=== PATIENT | female | born 1990 | race Hispanic/Latino ===

== ENCOUNTER 2022-10-09 18:42 | Emergency (ER) | payer SELFPAY ==
[2022-10-09 20:43] LABS: Bilirubin Neg (Negative); Blood, Urine Negative (Negative); Clarity Clear (Clear); Glucose, Urine (Dipstick) Normal (Negative); Ketone, Urine 50 mg/dL (Negative); Leukocyte 25 (Negative); Nitrite Negative (Negative); Protein, Urine (Dipstick) Negative (Neg-Trace); Urobilinogen Normal mg/dL (Less than 2)
[2022-10-09 20:59] LABS: Bacteria/HPF Rare-Few HPF (None Seen); CAUTI Indications for Culture Pregnancy; RBC/HPF None Seen HPF (0-3); Squamous Epithelial 0-3 HPF (0-3); Urine Culture Reflex Yes Yes; WBC/HPF 0-3 HPF (0-3)
[2022-10-09] MEDS ORDERED: Acetaminophen 500 MG TAB ONE (21:00)
[2022-10-09] MEDS ORDERED: Metoclopramide HCl 10 MG/2 ML VIAL ONE (21:00)
[2022-10-09] MEDS ORDERED: diphenhydrAMINE 50 MG/ML VIAL ONE (21:00)
== END 2022-10-09 22:55 | disposition home or self-care (01) ==
LOC: CSHERS 18:42
DX: R51.9 Headache, unspecified (principal); R11.2 Nausea with vomiting, unspecified
CPT/HCPCS: 81001; 87086; 96361; 96374; 96375; J1200; J2765

== ENCOUNTER 2023-03-23 05:20 | Inpatient (IN) | payer MEDICAID, OTHER, SELFPAY ==
[2023-03-22 13:16] LABS: Hematocrit 35.8 % (34.9-44.5); Hemoglobin 12.7 g/dL (12.0-15.5); Platelet Count 187 10x3/uL (150-450)
[2023-03-22 13:50] LABS: Syphilis Antibody Nonreactive (Nonreactive); Syphilis Antibody Index 0.06 S/CO (<1.00 Non-Reactive)
[2023-03-22 13:52] LABS: Hep B Surf Ag Non-Reactive S/CO (NonReactive)
[2023-03-23 05:40] VITALS: BMI 25.9
[2023-03-23] MEDS ORDERED: CEFAZOLIN 2 GM VIAL ONE (07:04)
[2023-03-23] MEDS ORDERED: Misoprostol 200 MCG TAB ONE (07:05)
[2023-03-23] MEDS ORDERED: Oxytocin 30 units/NS 500 ML 500 ML ONE (07:05)
[2023-03-23] MEDS ORDERED: Tranexamic Acid 1,000 MG/10 ML VIAL ONE (07:05)
[2023-03-23] MEDS ORDERED: Methylergonovine 0.2 MG/ML VIAL ONE (07:05)
[2023-03-23] MEDS ORDERED: Carboprost 250 MCG/ML AMP ONE (07:05)
[2023-03-23] MEDS ORDERED: Morphine PF 10 MG/10 ML VIAL ONE (07:12)
[2023-03-23] MEDS ORDERED: Dexmedetomidine 200 MCG/2 ML VIAL ONE (07:12)
[2023-03-23] MEDS ORDERED: Oxytocin 10 UNITS/ML VIAL ONE (07:13)
[2023-03-23] MEDS ORDERED: Methylergonovine 0.2 MG/ML VIAL IM PRN (07:16)
[2023-03-23] MEDS ORDERED: CEFAZOLIN 2 GM in Sodium Chloride 0.9% 100 ML IVPB SCH (07:16)
[2023-03-23] MEDS ORDERED: Ondansetron PF 4 MG/2 ML Vial IVP PRN ×4 (07:16→10:34)
[2023-03-23] MEDS ORDERED: Lactated Ringer's 1,000 ML IV SCH (07:16)
[2023-03-23] MEDS ORDERED: Bicitra 30 ML UDCUP PO PRN (07:16)
[2023-03-23] MEDS ORDERED: Oxytocin 30 units/NS 500 ML 500 ML IV SCH (07:16)
[2023-03-23] MEDS ORDERED: Misoprostol 200 MCG TAB PR PRN (07:16)
[2023-03-23] MEDS ORDERED: Diphenoxylate HCl/Atropine Tablet PO PRN (07:16)
[2023-03-23] MEDS ORDERED: Famotidine/PF 20 mg/2ml Vial SLOW IVP PRN (07:16)
[2023-03-23] MEDS ORDERED: Tranexamic Acid 1,000 MG/10 ML VIAL IVP PRN (07:16)
[2023-03-23] MEDS ORDERED: hydrALAZINE 20 MG/ML VIAL SLOW IVP PRN ×2 (07:16→10:34)
[2023-03-23] MEDS ORDERED: Promethazine HCl 25 MG/ML VIAL IM PRN ×3 (07:16→10:34)
[2023-03-23] MEDS ORDERED: Carboprost 250 MCG/ML AMP IM PRN (07:16)
[2023-03-23] MEDS ORDERED: PHENYLEPHRINE-NS 100 MCG/ML 10 ML SYRINGE ONE ×3 (07:48→08:17)
[2023-03-23] MEDS ORDERED: Ondansetron PF 4 MG/2 ML Vial ONE (07:48)
[2023-03-23] MEDS ORDERED: Dexamethasone 4 mg/ml Vial ONE (08:05)
[2023-03-23] MEDS ORDERED: Ketorolac Tromethamine 30 MG (1 mL) VIAL IVP PRN (09:29)
[2023-03-23] MEDS ORDERED: Moisturizing Cream (Eucerin) 113 GM JAR TOP PRN (09:29)
[2023-03-23] MEDS ORDERED: Naloxone HCl 0.4 mg/ml Vial IV PRN (09:29)
[2023-03-23] MEDS ORDERED: diphenhydrAMINE 50 MG/ML VIAL IVP PRN (09:29)
[2023-03-23] MEDS ORDERED: Meperidine HCl/PF 25 MG (1 mL) VIAL SLOW IVP PRN (09:29)
[2023-03-23] MEDS ORDERED: fentaNYL 50 mcg/mL 1 mL Vial SLOW IVP PRN (09:29)
[2023-03-23] MEDS ORDERED: Naloxone HCl 0.4 mg/ml Vial IVP PRN ×2 (09:29)
[2023-03-23] MEDS ORDERED: Promethazine HCl 25 MG SUPP PR PRN (09:29)
[2023-03-23] MEDS ORDERED: Ketorolac Tromethamine 30 MG (1 mL) VIAL IVP SCH (09:30)
[2023-03-23] MEDS ORDERED: Communication Order-Pharmacy FS SCH (09:30)
[2023-03-23] MEDS ORDERED: Boostrix 0.5 ML (Tdap) VIAL (>/=7 yrs of age) IM ONE (10:34)
[2023-03-23] MEDS ORDERED: diphenhydrAMINE 25 MG CAP PO PRN (10:34)
[2023-03-23] MEDS ORDERED: Meperidine HCl/PF 25 MG (1 mL) VIAL IM PRN (10:34)
[2023-03-23] MEDS ORDERED: Bisacodyl 10 MG SUPP PR PRN (10:34)
[2023-03-23] MEDS ORDERED: Lanolin Ointment 7 GM TUBE TOP PRN (10:34)
[2023-03-23] MEDS ORDERED: Ferrous Sulfate 325 MG TAB PO SCH (10:45)
[2023-03-23] MEDS ORDERED: Docusate 100 MG CAP PO SCH (10:45)
[2023-03-23] MEDS ORDERED: Prenatal Vitamin 1 TAB PO SCH (10:45)
[2023-03-23] MEDS: Ketorolac Tromethamine 30 MG (1 mL) VIAL IVP SCH ×3 (11:53→23:32)
[2023-03-23] MEDS: Docusate 100 MG CAP PO SCH (21:15)
[2023-03-24] MEDS: Ferrous Sulfate 325 MG TAB PO SCH ×4 (02:09→21:10)
[2023-03-24 03:29] LABS: Hematocrit 27.8 % (34.9-44.5); Hemoglobin 9.7 g/dL (12.0-15.5); Mean Corpuscular HGB CONC 34.9 g/dL (32.0-36.0); Mean Corpuscular Hemoglobin 31.9 pg (27.0-33.0); Mean Corpuscular Volume 91.4 fl (81.6-98.3); Mean Platelet Volume 11.4 fl (7.4-10.4); Platelet Count 140 10x3/uL (150-450); RBC Distribution Width 13.7 % (11.5-14.5); Red Blood Cell (RBC) Count 3.04 10x6/uL (3.90-5.03); White Blood Cell (WBC) Count 9.5 10x3/uL (3.5-10.5)
[2023-03-24] MEDS: Ketorolac Tromethamine 30 MG (1 mL) VIAL IVP SCH (05:49)
[2023-03-24] MEDS: Docusate 100 MG CAP PO SCH ×2 (08:47→21:00)
[2023-03-24] MEDS: Simethicone Chewable 80 MG TAB PO PRN ×2 (08:47→14:33)
[2023-03-24] MEDS: HYDROcodone/Acetaminophen 5/325 mg Tablet PO PRN ×3 (08:48→16:56)
[2023-03-24] MEDS: Prenatal Vitamin 1 TAB PO SCH (08:48)
[2023-03-24] MEDS: Ibuprofen 800 MG TAB PO SCH ×2 (14:33→21:00)
[2023-03-25] MEDS: HYDROcodone/Acetaminophen 5/325 mg Tablet PO PRN ×4 (01:14→23:32)
[2023-03-25] MEDS: Ibuprofen 800 MG TAB PO SCH ×3 (05:43→21:40)
[2023-03-25] MEDS: Ferrous Sulfate 325 MG TAB PO SCH ×2 (07:57→21:40)
[2023-03-25] MEDS: Prenatal Vitamin 1 TAB PO SCH (07:57)
[2023-03-25] MEDS: Docusate 100 MG CAP PO SCH ×2 (07:57→21:40)
[2023-03-26] MEDS: Ibuprofen 800 MG TAB PO SCH ×2 (05:42→13:27)
[2023-03-26] MEDS: HYDROcodone/Acetaminophen 5/325 mg Tablet PO PRN ×2 (07:42→14:35)
[2023-03-26] MEDS: Ferrous Sulfate 325 MG TAB PO SCH (07:42)
[2023-03-26] MEDS: Prenatal Vitamin 1 TAB PO SCH (07:42)
[2023-03-26] MEDS: Docusate 100 MG CAP PO SCH (07:42)
[2023-03-26 16:05] VITALS: BP 116/73; TEMP 98.1
== END 2023-03-26 18:10 | disposition home or self-care (01) | DRG 787 ==
LOC: CSHLD 05:20 → CSHPP 10:50
PROVIDERS: ADMIT Family Medicine; ATTEND Family Medicine
PROC: 10D00Z1 Extraction of Products of Conception, Low, Open Approach (ICD-10-PCS; principal; 2023-03-23)
PROC: 3E033XZ Introduction of Vasopressor into Peripheral Vein, Percutaneous Approach (ICD-10-PCS; 2023-03-23)
DX: O34.211 Maternal care for low transverse scar from previous cesarean delivery (principal); O98.32 Other infections with a predominantly sexual mode of transmission complicating childbirth; Z3A.39 39 weeks gestation of pregnancy; Z37.0 Single live birth
CPT/HCPCS: 36415; 51702; 85014; 85018; 85027; 85049; 86780; 86850; 86900; 86901; 87340; J1100; J1885; J2274; J2405; J2590